=== PATIENT | female | born 1975 | race American Indian/Alaskan Native ===

== ENCOUNTER 2017-07-18 04:40 | Inpatient (IN) | payer OTHER ==
[2017-07-18] MEDS ORDERED: PITOCin/NS 30 UNIT/500ML 30 UNITS/500 ML BAG IV SCH (08:00)
[2017-07-18] MEDS ORDERED: PITOCin/NS 20 UNIT/1000ML DRIP 20 UNITS/1,000 ML BAG IV SCH ×2 (08:00→15:00)
--- NOTE | 2017-07-18 08:10 | History and Physical Report ---
History of Present Illness Date of examination: 07/18/17 Date of admission: 07/18/17 04:58 Chief complaint: SROM @ 0410, clear fluid History of present illness: EDC Calculations LMP: 07/29/2017 Past History : 1 Term Births: 0 Premature Births: 0 Living Children: 0 Para: 0 Mult. Births: 0 Prev : 0 Prev. attempt? 0 Aborta: 0 Elect. Ab: 0 Spont. Ab: 0 Ectopics: 0 Past Medical History: Bronchitis Past Surgical History: Negative Past Surgical History Family History Summary: Other family member - Has No Family History of Ovarvian Cancer - Entered On: Other family member - Has No Family History of Colon Cancer - Entered On: 2017 Other family member - Has No Family History of Breast Cancer - Entered On: 2017 Other family member - Has Family History of Hypertension - Entered On: 06/18/2017 Other family member - Has Family History of Diabetes - Entered On: 06/18/2017 Other family member - Has Family History of Coronary Heart Disease - Entered On : 06/18/2017 Social History: Patient is martin magaña Patient is Smoking History: Patient has never smoked. 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 Infection History Hx of STD: none Personal hx. of genital herpes: no Genetic History ADVANCED MATERNAL AGE Congenital Heart Defect: Mom: no Dad: no Adria Disease: Mom: no Dad: no Thalassemia Mom: no Dad: no Neural Tube Defect Mom: no Dad: no Down's Syndrome Mom: no Dad: no Gautam-Sachs Mom: no Dad: no Sickle Cell Disease/Trait Mom: no Dad: no Hemophilia Mom: no Dad: no Muscular Dystrophy Mom: no Dad: no Cystic Fibrosis Mom: no Dad: no Dixon Chorea Mom: no Dad: no Mental Retardation Mom: no Dad: no Fragile X Mom: no Dad: no Other Genetic/Chromosomal Disorder Mom: no Dad: no Child w/other defect Mom: no Dad: no Enviromental Exposures Xray Exposure: no Active Medications (reviewed today): None Current Allergies (reviewed today): No known allergies Past History Past Medical History: other (see HPI) Past Surgical History: other (see HPI) Family/Genetic History: other (see HPI) - Obstetrical History Expected Date of Delivery: 07/29/17 Actual Gestation: 38 Week(s) 3 Day(s) : 2 Para: 0 Hx # Term Pregnancies: 0 Number of Pregnancies: 0 Spontaneous Abortions: 0 Induced : 1 Number of Living Children: 0 Medications and Allergies Allergies Allergy/AdvReac Type Severity Reaction Status Date / Time No Known Allergies Allergy Verified 07/18/17 08:14 Home Medications Medication Instructions Recorded Confirmed Last Taken Type No Known Home Medications [No 07/18/17 07/18/17 Unknown History Reported Home Medications] Active Meds: Active Medications Ephedrine Sulfate (Ephedrine Sulfate) 10 mg IV Q2M PRN PRN Reason: Hypotension Fentanyl (Sublimaze) 100 mcg IV Q2H PRN PRN Reason: Labor Pain Lactated Ringer's (Lactated Ringers) 1,000 mls @ 125 mls/hr IV DIRECT MARIA ISABEL Oxytocin/Sodium Chloride (Pitocin/Ns 20 Unit/1000ml Drip) 20 units in 1,000 mls @ 125 mls/hr IV DIRECT MARIA ISABEL Oxytocin/Sodium Chloride (Pitocin/Ns 30 Unit/500ml) 30 units in 500 mls @ 4 mls /hr IV TITR MARIA ISABEL; Protocol Lidocaine (Xylocaine 2%) 20 ml INFILTRATI ONCE ONE Stop: 07/18/17 07:57 Mineral Oil (Mineral Oil) 30 ml PO QHS PRN PRN Reason: Constipation Ondansetron HCl (Zofran) 4 mg IV Q8H PRN PRN Reason: Nausea And Vomiting Terbutaline Sulfate (Brethine) 0.25 mg SUB-Q ONCE PRN PRN Reason: Hyperstimulation/Hypertonicity Review of Systems All systems: negative - Vital Signs Vital signs: Vital Signs Temp Pulse Resp BP Pulse Ox 96.9 F L 87 16 118/81 99 07/18/17 06:40 07/18/17 06:40 07/18/17 06:40 07/18/17 06:40 07/18/17 06:40 Temp Pulse Resp BP Pulse Ox 96.9 F L 87 16 118/81 99 07/18/17 06:40 07/18/17 06:40 07/18/17 06:40 07/18/17 06:40 07/18/17 06:40 - Physical Exam Breasts: Positive: normal Cardiovascular: Regular rate Lungs: Positive: Clear to auscultation, Normal air movement Abdomen: Positive: normal appearance, soft Genitourinary (Female): Positive: normal external genitalia, normal perenium Vagina: Positive: normal moisture (clear fluid) Uterus: Positive: normal size Extremities: Positive: normal Deep Tendon Reflex Grade: Normal +2 - Obstetrical FHR: auscultation normal Uterine Contraction Monitor Mode: External Uterine Contraction Pattern: Regular Uterine Tone Measurement Phase: Contraction Uterine Contraction Intensity: Mild Results Result Diagrams: 07/18/17 05:40 All other labs normal. Assessment and Plan 42y/o @ 38+3 weeks arrived with c/o SROM @ 0410. Patient rates pain 2/10 w / ctx. Will get u/s to confirm presentation. once vertex is confirmed, Plan to start pitocin induction. - Patient Problems (1) 38 weeks gestation of Current Visit: Yes Status: Acute (2) Premature rupture of membranes Current Visit: Yes Status: Acute Qualifiers: PROM gestational age: full term
[2017-07-18 08:27] LABS: Hematocrit 36.3 % (30.3-42.9); Hemoglobin 12.4 gm/dl (10.1-14.3); Mean Corpuscular HGB Conc 34 % (30-34); Mean Corpuscular Hemoglobin 31 pg (28-32); Mean Corpuscular Volume 91 fl (79-97); Platelet Count 246 K/mm3 (140-440); Red Blood Count 4.01 M/mm3 (3.65-5.03); Red Cell Distribution Width 14.4 % (13.2-15.2)
[2017-07-18] MEDS ORDERED: SUBLIMAZE IV PRN (08:30)
[2017-07-18] MEDS ORDERED: BRETHINE SUB-Q PRN (08:30)
[2017-07-18] MEDS ORDERED: ePHEDrine SULFATE IV PRN (08:30)
[2017-07-18] MEDS ORDERED: ZOFRAN IV PRN ×2 (08:30→12:26)
[2017-07-18] MEDS ORDERED: MINERAL OIL PO PRN (08:30)
[2017-07-18] MEDS ORDERED: XYLOCAINE 2% INFILTRATI NR (08:30)
[2017-07-18] MEDS: LACTATED RINGERS 1,000 ML IV SCH ×2 (09:29→11:41)
--- NOTE | 2017-07-18 11:29 | Event Note ---
Date: 07/18/17 Callled by nursing due to pt having recurrent decelearations. Pt evaluated and cx is not dilated but 0.5cm marissa post and presenting part is not in the pelvis. I recommend delivery via c/s at this time as I don't feel the baby will tolerate the labor induction with pitocin as she was have lates with the pitocin also. Pt expressed understanding and all questions were addressed and answered. Consents to b signed and placed on the chart.
[2017-07-18] MEDS ORDERED: BICITRA ONE (11:31)
[2017-07-18] MEDS ORDERED: PEPCID IV ONE (11:32)
[2017-07-18] MEDS ORDERED: REGLAN ONE (11:32)
--- NOTE | 2017-07-18 12:24 | Anesthesia Consultation ---
Anesthesia Consult and Med Hx Date of service: 07/18/17 - Airway Anesthetic Teeth Evaluation: Good ROM Head & Neck: Adequate Mental/Hyoid Distance: Adequate Mallampati Class: Class II Intubation Access Assessment: Probably Good - Pre-Operative Health Status ASA Pre-Surgery Classification: ASA2 Proposed Anesthetic Plan: Epidural, Spinal - Pulmonary Hx Asthma: No COPD: No Hx Pneumonia: No - Cardiovascular System Hx Hypertension: No - Central Nervous System Hx Seizures: No Hx Psychiatric Problems: No - Endocrine Hx Renal Disease: No Hx End Stage Renal Disease: No Hx Hypothyroidism: No Hx Hyperthyroidism: No - Hematic Hx Anemia: No Hx Sickle Cell Disease: No - Other Systems Hx Alcohol Use: No
[2017-07-18] MEDS ORDERED: PHENERGAN PR PRN (12:26)
[2017-07-18] MEDS ORDERED: PHENERGAN PO PRN (12:26)
[2017-07-18] MEDS ORDERED: BENADRYL IV PRN (12:26)
[2017-07-18] MEDS ORDERED: NARCAN 0.4 MG/1 ML IV PRN (12:26)
[2017-07-18] MEDS ORDERED: DILAUDID IV PRN (12:26)
--- NOTE | 2017-07-18 12:26 | Anesthesia Day of Surgery ---
Anesthesia Day of Surgery - Day of Surgery Patient Examined: Yes Patient H&P Reviewed: Yes Patient is NPO: Yes
[2017-07-18] MEDS ORDERED: TORADOL IV PRN (12:27)
[2017-07-18] MEDS ORDERED: SODIUM CHLORIDE FLUSH SYRINGE 10 ML IV NR (13:00)
[2017-07-18] MEDS ORDERED: NEO SYNEPHRINE/NS Syringe(OR USE) IV ONE ×2 (13:06→13:30)
[2017-07-18] MEDS ORDERED: ASTRAMORPH PF 10MG/10ML ONE (13:18)
[2017-07-18] MEDS ORDERED: WATER FOR IRRIG STERILE IR ONE (13:22)
[2017-07-18] MEDS ORDERED: NACL 0.9% IR ONE (13:22)
[2017-07-18] MEDS ORDERED: LACTATED RINGERS 1,000 ML ONE (13:30)
--- NOTE | 2017-07-18 14:06 | Operative Report ---
Operative Report Operative Report: Date of procedure: 07/18/2017 Pre-operative diagnosis: 38 weeks gestation Premature rupture of membranes intolerance to labor Remote from delivery Post-operative diagnosis: Same Procedure name(s): Primary low transverse section via Pfannenstiel skin incision Surgeon: Dr. Bryant Miner Pick: MARLENY Anesthesia: Epidural EBL: 300 mL Urine output: 100 mL of clear urine out at the end of procedure Fluids: 1500 mL Findings: Liveborn male weight 6 lbs. 15 oz. Apgars of 4 and 8 at one and 5 minutes Normal fallopian tubes and ovaries bilaterally normal uterus. 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 Indications: He shouldn't presented with spontaneous rupture membranes noted to be approximately once an immediate dilated with random contractions. Patient was started on Pitocin and was noted to have repetitive late decelerations. The Pitocin was discontinued and with spontaneous contractions patient's was noted to have late decelerations with every contraction without any cervical change. Decision was made to proceed with primary section due to intolerance to labor induction. Since were signed and placed on the chart all questions were addressed and answered. Procedure: Patient was taking to the operating room. Patient was then prepped and draped in sterile fashion after anesthesia was found to be adequate. A low transverse skin incision was made with the scalpel and carried down to the underlying layer of fascia with the Bovie. The fascia was then incised in the midline and this incision was extended bilaterally with the Bovie. The superior aspect of the fascia was grasped with Rajinder clamps tented upward and dissected off of the anterior rectus muscles with the scalpel. In similar fashion the inferior aspect of the fascia was grasped with Rajinder clamps tented upward and dissected off of the anterior rectus muscles. The rectus muscles were then bluntly divided in the midline. The peritoneum was identified and entered into sharply. The bladder blade was placed. The bladder flap was created using the Metzenbaum scissors. The bladder blade was replaced. A lower transverse uterine incision was made with the scalpel and extended bilaterally with the bandage scissors. The 's head was then delivered atraumatically. The anterior shoulder and rest of delivered without difficulty. The umbilical cord was clamped x2. The cord was cut. The was then placed in sterile bassinet. The cord blood was collected. The placenta was manually extracted in its entirety. The uterus was exteriorized and cleared of all clots and debris. The uterine incision was closed using 0 Vicryl in a running locking fashion. A second imbricating layer of the same suture was then created. The posterior cul-de-sac was copiously irrigated. The uterus was returned to the abdomen. The gutters were also irrigated. The anterior rectus muscles were reapproximated using 3-0 Vicryl. The anterior rectus fascia was reapproximated using 0 Vicryl in a running fashion. The subcuticular fat was reapproximated using 2-0 Vicryl in a running fashion. The skin was reapproximated with 4-0 Monocryl in a subcuticular stitch. The patient tolerated the procedure well. Sponge lap and needle counts were all correct x3. Patient was taken to the recovery room awake and in stable condition.
[2017-07-18] MEDS ORDERED: MOTRIN PO PRN (14:15)
[2017-07-18] MEDS ORDERED: TUCKS PAD TP PRN (14:15)
[2017-07-18] MEDS ORDERED: LANSINOH TP PRN (14:15)
[2017-07-18] MEDS ORDERED: DEMEROL ONE (14:18)
[2017-07-18] MEDS ORDERED: ANCEF/NS 1 GM/50 ML 1 GM/50 ML BAG IV SCH (15:00)
--- NOTE | 2017-07-18 16:36 | Ultrasound Report ---
FINAL REPORT EXAM: US OB LIMITED HISTORY: presentation TECHNIQUE: Directed sonography of the pelvis. PRIORS: None. FINDINGS: Limited examination performed to determine presentation only. Live, intrauterine in cephalic presentation. heart motion detected and heart rate 146 beats per minute. IMPRESSION: 1. Please see above.
[2017-07-18] MEDS: D5LR 1,000 ML IV SCH (21:24)
[2017-07-18] MEDS: ceFAZolin 1 GM in NACL 0.9% 20 ML IV SCH (23:16)
[2017-07-19 03:56] LABS: Hematocrit 33.4 % (30.3-42.9); Hemoglobin 11.4 gm/dl (10.1-14.3)
[2017-07-19] MEDS: ceFAZolin 1 GM in NACL 0.9% 20 ML IV SCH (06:02)
[2017-07-19] MEDS: D5LR 1,000 ML IV SCH (06:05)
[2017-07-19] MEDS ORDERED: BENADRYL PO NR (08:00)
--- NOTE | 2017-07-19 08:15 | Progress Note ---
Assessment and Plan Pt w/o complaint VSS FF below umb Lochia small Dressing D&I H&H No evidence anemia. Doing well s/p c/s P: continue pathway. Adv diet and activity as tolerated Encouraged to be OOB in room frequently. Subjective - Subjective Date of service: 07/19/17 (Pt w/o complaint) Principal diagnosis: Day # 1 s/p primary section Patient reports: appetite normal, voiding normally, pain well controlled, ambulating normally : doing well Objective - Vital Signs Latest vital signs: Vital Signs Temp Pulse Resp BP BP Pulse Ox 07/19/17 03:01 16 07/19/17 02:15 98.8 F 68 16 119/68 07/18/17 20:45 99.2 F 79 18 131/72 07/18/17 15:40 97.8 F 75 16 133/63 07/18/17 15:13 70 20 132/59 99 07/18/17 14:58 65 16 123/61 98 07/18/17 14:42 69 20 113/60 98 07/18/17 14:28 70 20 113/61 97 07/18/17 14:23 68 20 118/67 97 07/18/17 14:18 67 18 122/61 96 07/18/17 14:13 98.3 F 79 16 106/76 96 Intake and Output 07/18/17 07/19/17 07/19/17 22:59 06:59 14:59 Intake Total 500 988.333 Output Total 525 800 Balance -25 188.333 Intake: IV 500 868.333 D5lr 1,000 ml @ 100 mls/ 868.333 hr IV DIRECT MARIA ISABEL Rx#: [id number] Intake, Free Water 120 Output: Urine 525 800 Indwelling Catheter 400 800 Other: Total, Output Amount 400 800 Estimated Blood Loss 600 - Exam Breasts: Present: normal, Cardiovascular: Present: Regular rate Lungs: Present: Clear to auscultation, Normal air movement (had pt use IS while I was present) Abdomen: Present: normal appearance, soft, normal bowel sounds Vulva: both: normal Uterus: Present: normal, firm, fundal height below umbilicus Extremities: Present: normal Deep Tendon Reflex Grade: Normal +2 Incision: Present: normal, dry, intact, dressed (to be removed today)
[2017-07-19] MEDS: PERCOCET 5/325 PO PRN ×2 (12:20→17:33)
[2017-07-19] MEDS ORDERED: BOOSTRIX IM ONE (14:16)
--- NOTE | 2017-07-20 09:04 | Progress Note ---
Assessment and Plan Pt OOB ambulating in room. Voiding w/o difficulty Pt c/o sweating Exp this is normal Pt is afebrile. VSS FF below umb Lochia small Incision as noted Will monitor for any bleeding. H&H no S/Sx of anemia. Doing well s/p section P: continue pathway Encouraged ambulation in hallway, hydration, avoid salty foods and drinks Pt voiced understanding. Pt declines abdominal binder and support stockings. Subjective - Subjective Date of service: 07/20/17 (pt request to d/c tomorrow) Principal diagnosis: Day # 2 s/p primary section Patient reports: appetite normal, voiding normally, pain well controlled, ambulating normally [place]: doing well Objective - Vital Signs Latest vital signs: Vital Signs Temp Pulse Resp BP Pulse Ox 07/20/17 01:56 99 F 94 H 20 119/78 07/19/17 21:40 99.3 F 93 H 20 129/77 98 07/19/17 16:09 98.5 F 74 18 136/83 98 07/19/17 11:42 98.3 F 72 18 134/77 99 Intake and Output 07/19/17 07/20/17 07/20/17 22:59 06:59 14:59 Intake Total 840 360 Output Total 900 Balance -60 360 Intake: Intake, Free Water 840 360 Output: Urine 900 Void 900 Other: Total, Output Amount 900 # Voids Void 1 2 - Exam Breasts: Present: normal, (pumping) Cardiovascular: Present: Regular rate Lungs: Present: Clear to auscultation, Normal air movement Abdomen: Present: normal appearance, soft, normal bowel sounds Vulva: both: normal Uterus: Present: normal, firm, fundal height below umbilicus Extremities: Present: normal, edema (legs are tight Pt c/o heaviness but no pain ) Deep Tendon Reflex Grade: Normal +2 Incision: Present: normal, intact, other (small amt of dark blood noted on the stristrips in the center of the incision Will have RN chg steristrips after pt showers Pt is aware. Will monitor)
[2017-07-20] MEDS: PERCOCET 5/325 PO PRN ×2 (14:25→21:31)
[2017-07-21] MEDS: PERCOCET 5/325 PO PRN (08:40)
[2017-07-21] MEDS ORDERED: MILK OF MAGNESIA PO NR (09:30)
--- NOTE | 2017-07-21 13:33 | Discharge Summary ---
Providers - Providers Date of Admission: 07/18/17 04:58 Date of discharge: 07/21/17 Attending physician: TINA CONNER Primary care physician: TINA CONNER Hospitalization Reason for admission: other (IOL) Delivery: Procedure: section Procedure details: see op note Incision: normal, dry, intact complications: none Discharge diagnosis: IUP at term delivered [place] baby: male Hospital course: Pt admitted for IOL. Underwent c/s for NRFT and intolerance to labor. Post op course was not complicated. Pt to be d/c home today. Condition at discharge: Good Disposition: DC-01 TO HOME OR SELFCARE Plan - Discharge Medications Prescriptions: Ibuprofen 800 mg PO Q6HR #30 tablet Lidocain2.5%/Prilocai2.5% [Emla] 2 gm TP ONCE #1 tube oxyCODONE /ACETAMINOPHEN [Percocet 5/325] 1 tab PO Q4HR #30 tab - Provider Discharge Summary Activity: routine, no sex for 6 weeks, no heavy lifting 4 weeks, no strenuous exercise Diet: routine Instructions: routine Additional instructions: [] Smoking cessation referral if applicable(refer to patient education folder for contact #) [] Refer to [facility] Booklet Call your doctor immediately for: * Fever > 100.5 * Heavy vaginal bleeding ( >1 pad per hour) * Severe persistent headache * Shortness of breath * Reddened, hot, painful area to leg or breast * Drainage or odor from incision. * Keep incision clean and dry at all times and follow doctor's instructions regarding bathing/showering - Follow up plan Follow up: TINA CONNER MD [Primary Care Provider] - 7 Days
[2017-07-21 18:19] VITALS: BP 128/80
== END 2017-07-21 18:15 | disposition home or self-care (01) | DRG 766 ==
LOC: TRG 04:40 → LD 04:58 → OB 16:03
PROVIDERS: ADMIT Obstetrics & Gynecology; ATTEND Obstetrics & Gynecology
PROC: 10D00Z1 Extraction of Products of Conception, Low, Open Approach (ICD-10-PCS; principal; 2017-07-18)
DX: O76 Abnormality in fetal heart rate and rhythm complicating labor and delivery (principal); O42.013 Preterm premature rupture of membranes, onset of labor within 24 hours of rupture, third trimester; O34.13 Maternal care for benign tumor of corpus uteri, third trimester; Z37.0 Single live birth; Z3A.38 38 weeks gestation of pregnancy
CPT/HCPCS: 36415; 76815; 85014; 85018; 85027; 86592; 86762; 86850; 86900; 86901; 87806; 88307; 99211; C9250; G0463; J0690; J1885; J2175; J2274; J2370; J2405; J2590; J2765; J7120; J7121